=== PATIENT | male | born 1970 | race African-American/Black ===

== ENCOUNTER 2017-10-16 14:47 | Observation (INO) ==
[2017-10-16 15:46] LABS: Basophils % 0.4 % (0.0-0.8); Eosinophils # 0.2 10*3/uL (0.0-0.87); Eosinophils % 2.3 % (0.00-10.9); Hematocrit 35.4 VOL% (42.0-52.0); Hemoglobin 12.1 GM/DL (14.0-18.0); Immature Granulocytes % 0.3 %; Immature Granulocytes Absolute 0.02 #; Lymphocytes # 2.6 10*3/uL (1.4-4.0); Mean Corpuscular HGB Conc 34.2 GM/DL (32-36); Mean Corpuscular Hemoglobin 32 PG (27-34); Mean Corpuscular Volume 93.4 FL (87-102); Mean Platelet Volume 12.6 FL (9.6-12.0); Monocytes # 0.6 10*3/uL (0.11-0.8); Monocytes % 7.4 % (1.7-12.7); Neutrophils # 4.1 10*3/uL (1.4-7.4); Neutrophils % 54.6 % (38.7-73.9); Platelet Count 150 T/CUMM (130-400); Red Blood Count 3.79 MC/CUMM (3.8-5.5); White Blood Count 7.5 T/CUMM (4-12)
[2017-10-16 15:56] LABS: PT Patient Result 10.4 SECS; Partial Thromboplastin Time 29.5 SECS (0-40)
[2017-10-16 16:22] LABS: Alanine Aminotransferase 21 U/L (16-61); Albumin 3.8 G/DL (3.4-5.0); Alkaline Phosphatase 111 U/L (45-117); Aspartate Amino Transferase 15 U/L (0-37); Blood Urea Nitrogen 7 MG/DL (7-18); Calcium 8.6 MG/DL (8.5-10.1); Glucose 77 MG/DL (74-106); Osmolality,Calculated 275.4 MOS/KG (273-304); Potassium 4.2 MMOL/L (3.5-5.1); Sodium 140 MMOL/L (136-145); Total Protein 6.7 G/DL (6.4-8.3)
[2017-10-16 16:53] LABS: Barbiturates Screen,Urine Negative (Negative); Benzodiazepines Screen,Urine Negative (Negative); Cannabinoid Screen,Urine Negative (Negative); Opiate Screen,Urine Negative (Negative); Phencyclidine Screen,Urine Negative (Negative)
[2017-10-16] MEDS ORDERED: KETOROLAC 30 MG/1 ML VIAL IV STA (17:29)
[2017-10-16] MEDS ORDERED: GLUCAGON 1 MG VIAL IM PRN (18:54)
[2017-10-16] MEDS ORDERED: ACETAMINOPHEN 325 MG TABLET PO PRN (18:54)
[2017-10-16] MEDS ORDERED: ONDANSETRON 4 MG/2 ML VIAL IV PRN (18:54)
[2017-10-16] MEDS ORDERED: DEXTROSE 50% 25 GM/50 ML VIAL IV PRN (18:54)
[2017-10-16] MEDS ORDERED: BACLOFEN 20 MG TABLET PO PRN (20:01)
[2017-10-16] MEDS ORDERED: KETOROLAC 30 MG/1 ML VIAL IV PRN (20:03)
[2017-10-16] MEDS: ALBUTEROL 2.5 MG/3 ML NEB RESP TX SCH (20:19)
[2017-10-16] MEDS: IPRATROPIUM 500 MCG/2.5 ML NEB RESP TX SCH (20:19)
[2017-10-16] MEDS ORDERED: metFORMIN 500 MG TABLET PO SCH (20:30)
[2017-10-16] MEDS: NICOTINE 14 MG/24 HR PATCH TRANSDERM SCH (20:33)
[2017-10-16] MEDS: risperiDONE 1 MG TABLET PO SCH (20:33)
[2017-10-16] MEDS: busPIRone 10 MG TABLET PO SCH (20:34)
[2017-10-16] MEDS: INDOMETHACIN 25 MG CAPSULE PO SCH (20:34)
[2017-10-16] MEDS: GABAPENTIN 600 MG TABLET PO SCH (20:34)
[2017-10-16] MEDS ORDERED: ENOXAPARIN 40 MG/0.4 ML SYRINGE SUBCUT SCH (21:00)
[2017-10-16] MEDS ORDERED: traZODone 50 MG TABLET PO SCH (21:00)
[2017-10-16] MEDS ORDERED: ATORVASTATIN 20 MG TABLET PO SCH (21:00)
[2017-10-16] MEDS: INSULIN REGULAR 100 UNIT/ML SUBCUT SCH (21:54)
[2017-10-17 01:05] LABS: Basophils % 0.4 % (0.0-0.8); Eosinophils # 0.2 10*3/uL (0.0-0.87); Eosinophils % 2.5 % (0.00-10.9); Hematocrit 35.7 VOL% (42.0-52.0); Hemoglobin 12.2 GM/DL (14.0-18.0); Immature Granulocytes % 0.4 %; Immature Granulocytes Absolute 0.03 #; Lymphocytes # 2.7 10*3/uL (1.4-4.0); Lymphocytes % 39.2 % (21.2-54.2); Mean Corpuscular HGB Conc 34.2 GM/DL (32-36); Mean Corpuscular Hemoglobin 31 PG (27-34); Mean Corpuscular Volume 91.5 FL (87-102); Mean Platelet Volume 12.6 FL (9.6-12.0); Monocytes # 0.4 10*3/uL (0.11-0.8); Neutrophils # 3.5 10*3/uL (1.4-7.4); Neutrophils % 51.5 % (38.7-73.9); Platelet Count 123 T/CUMM (130-400); Red Cell Distribution Width 14.1 % (9.3-17.3); White Blood Count 6.9 T/CUMM (4-12)
[2017-10-17 01:17] LABS: Calcium 8.3 MG/DL (8.5-10.1); Potassium 3.7 MMOL/L (3.5-5.1); Risk Ratio 3.26; Thyroid Stimulating Hormone 2.1 uIU/ml (0.358-3.74); VLDL CHOLESTEROL 47.2 MG/DL
[2017-10-17] MEDS: traMADol 50 MG TABLET PO PRN ×2 (05:47→11:53)
[2017-10-17] MEDS: IPRATROPIUM 500 MCG/2.5 ML NEB RESP TX SCH ×3 (07:21→15:47)
[2017-10-17] MEDS: ALBUTEROL 2.5 MG/3 ML NEB RESP TX SCH (07:21)
[2017-10-17] MEDS ORDERED: PANTOPRAZOLE 40 MG TABLET PO SCH (09:00)
[2017-10-17] MEDS ORDERED: ASPIRIN EC 81 MG TABLET PO SCH ×2 (09:00)
[2017-10-17] MEDS ORDERED: METOPROLOL SUCCINATE XL 25 MG TABLET PO SCH (09:00)
[2017-10-17] MEDS ORDERED: CITALOPRAM 40 MG TABLET PO SCH (09:00)
[2017-10-17] MEDS: INSULIN REGULAR 100 UNIT/ML SUBCUT SCH ×2 (09:13→11:42)
[2017-10-17] MEDS: INDOMETHACIN 25 MG CAPSULE PO SCH (09:17)
[2017-10-17] MEDS: risperiDONE 1 MG TABLET PO SCH (09:17)
[2017-10-17] MEDS: GABAPENTIN 600 MG TABLET PO SCH (09:17)
[2017-10-17] MEDS: NICOTINE 14 MG/24 HR PATCH TRANSDERM SCH (09:18)
[2017-10-17] MEDS: busPIRone 10 MG TABLET PO SCH (09:18)
[2017-10-17 12:44] VITALS: BP 122/61
== END 2017-10-17 15:45 | disposition home or self-care (01) ==
LOC: N.EDINP 14:47 → N.ED 14:47 → N.EDINP 17:50 → N.TELES 17:53
PROVIDERS: ADMIT Internal Medicine; ATTEND Internal Medicine